=== PATIENT | male | born 1990 ===

== ENCOUNTER 2018-10-15 14:52 | Emergency (ER) | payer BC ==
[~2018-10-15] VITALS: Ht 160 cm; Wt 81.8 kg
[2018-10-15 14:58] VITALS: Ht 160 cm; Wt 81.8 kg
--- NOTE | 2018-10-15 15:52 | ERD ---
ER Documentation Chief Complaint Chief Complaint exposures to saline mix with blood splashed to left eye [facility] student HPI Patient is a 28-year-old male with no past medical history who presents the ER for concerns of body fluid exposure which occurred [employer]. Patient was working in the [employer]. Patient states he was dumping a bowl of saline fluid mixed with blood in it when it splashed into his left eye. Patient was not wearing p rotective eye wear. Patient did rinse his left eye in [employer] department for approximately "5 to 10 seconds". Patient denies any blurry vision. Patient denies any previous exposures. Patient denies previous history of hepatitis B, C or HIV. Patient is up-to-date with all vaccinations. ROS All systems reviewed and are negative except as per history of present illness. Medications Home Meds Active Scripts Raltegravir Potassium* (Isentress*) 400 Mg Tablet, 400 MG PO BID, #60 TAB Prov:JOSEPHINE PAREDES PA-C 10/15/18 Emtricitabine-Tenofovir* (Truvada*) 200-300 Mg Tablet, 1 TAB PO DAILY for 30 Days, TAB Prov:JOSEPHINE PAREDES PA-C 10/15/18 Allergies Allergies: Coded Allergies: No Known Allergy (Unverified , 10/15/18) PMhx/Soc Medical and Surgical Hx: pt denies Medical Hx, pt denies Surgical Hx History of Surgery: No Hx Neurological Disorder: No Hx Respiratory Disorders: No Hx Cardiac Disorders: No Hx Psychiatric Problems: No Hx Miscellaneous Medical Probl: No Hx Alcohol Use: No Hx Substance Use: No Hx Tobacco Use: No Smoking Status: Never smoker FmHx Family History: No diabetes Physical Exam Vitals Vital Signs Date Temp Pulse Resp B/P (MAP) Pulse Ox O2 O2 Flow FiO2 Time Delivery Rate 10/15/18 98.3 94 20 140/78 96 14:58 (98) Physical Exam GENERAL: Well-developed, well-nourished male. Appears in no acute distress. HEAD: Normocephalic, atraumatic. EYES: Pupils are equally reactive bilaterally. EOMs grossly intact. No conjunctival erythema or periorbital swelling. NECK: Supple. No meningismus. Normal range of motion of the neck. LUNG: Clear to auscultation bilaterally. No rhonchi, wheezing, rales or coarse breath sounds. HEART: Regular rate and rhythm. No murmurs, rubs or gallops. EXTREMITIES: Equal pulses bilaterally. No peripheral clubbing, cyanosis or edema. No unilateral leg swelling. NEUROLOGIC: Alert and oriented. Moving all four extremities without any difficulty. Normal speech. Steady gait. SKIN: Normal color. Warm and dry. No rashes or lesions. Result Diagram: 10/15/18 1538 Results 24 hrs Laboratory Tests Test 10/15/18 15:38 White Blood Count 8.3 10^3/ul Red Blood Count 5.74 10^6/ul Hemoglobin 15.3 g/dl Hematocrit 47.1 % Mean Corpuscular Volume 82.1 fl Mean Corpuscular Hemoglobin 26.7 pg Mean Corpuscular Hemoglobin Concent 32.5 g/dl Red Cell Distribution Width 13.7 % Platelet Count 338 10^3/UL Mean Platelet Volume 10.0 fl Immature Granulocytes % 0.400 % Neutrophils % 70.0 % Lymphocytes % 21.3 % Monocytes % 7.2 % Eosinophils % 0.5 % Basophils % 0.6 % Nucleated Red Blood Cells % 0.0 /100WBC Immature Granulocytes # 0.030 10^3/ul Neutrophils # 5.8 10^3/ul Lymphocytes # 1.8 10^3/ul Monocytes # 0.6 10^3/ul Eosinophils # 0.0 10^3/ul Basophils # 0.1 10^3/ul Nucleated Red Blood Cells # 0.0 10^3/ul Total Bilirubin 0.6 mg/dl Direct Bilirubin 0.00 mg/dl Indirect Bilirubin 0.6 mg/dl Aspartate Amino Transf (AST/SGOT) 37 IU/L Alanine Aminotransferase (ALT/SGPT) 59 IU/L Alkaline Phosphatase 59 IU/L Total Protein 8.3 g/dl Albumin 4.9 g/dl Hepatitis B Surface Antigen NEGATIVE Hepatitis B Surface Antibody POSITIVE Hepatitis C Antibody NEGATIVE HIV (1&2) Antibody NEGATIVE Current Medications Medications Dose Sig/Garry Start Time Status Last (Trade) Ordered Route PRN Stop Time Admin Dose Reason Admin 400 mg ONCE ONCE 10/15/18 DC 10/15/18 Miscellaneous PO 17:00 10/15/18 16:29 Medication 17:00 (Isentress) 1 tab ONCE ONCE 10/15/18 DC Emtricitabine PO 17:00 10/15/18 / Tenofovir 17:00 (Truvada) Procedures/MDM MEDICAL DECISION MAKING: Patient is a 28-year-old male who presents the ER for concerns of body fluid exposure to his left eye prior to arrival. Vital signs were reviewed. Patient is afebrile. Patient was not hypoxic. Patient was hemodynamically stable. Patient stated that he did rinse his eye in the [employer] for approximately 5 to 10 seconds. Patient underwent additional eye rinse time here in the ER. Patient rinse his eye for approximately 10 minutes. Given that fluid exposure occurred in the [employer], we did determine who the source patient was. Source patient's physician Dr. Stewart. I spoke with [employer] nurses and requested that the source patient be tested for HIV antibody, hepatitis B surface antigen and hepatitis C antibody. Blood work was obtained on the patient. CBC showed no evidence of systemic infection or anemia. Liver panel was within normal limits. Hep B surface antigen was negative. Hep B hepatitis B surface antigen was negative. Hepatitis B surface antibody was positive. Patient noted to have immunity to hep B virus. Hepatitis C antibody was negative. HIV 1 and 2 antibody negative. I discussed HIV post exposure prophylaxis with the patient. I discussed the risks versus benefits of taking Isentress and Truvada in the setting of post exposure prophylaxis and the associated side effects of these medications. Patient stated that he did wish to start this medication. Patient was given first dose of medication here in the ER. Patient will be discharged home with a prescription for Isentress and Truvada. Patient was advised to follow-up with his primary care physician and monitor his blood work closely while taking these medications. DISCHARGE: At this time, patient is stable for discharge and outpatient management. I have instructed the patient to follow-up with his/her primary care physician in 1-2 days. I have discussed with the patient the possibility of needing to see a specialist for further workup and imaging studies if symptoms persist. I have instructed the patient to promptly return to the ER for any new or worsening symptoms including increased pain, fever, nausea, vomiting, weakness or LOC. The patient and/or family expressed understanding of and agreement with this plan. All questions were answered. Home care instructions were provided. Disclaimer: Inadvertent spelling and grammatical errors are likely due to EHR/dictation software use and do not reflect on the overall quality of patient care. Also, please note that the electronic time recorded on this note does not necessarily reflect the actual time of the patient encounter. Departure Diagnosis: Primary Impression: Employee exposure to body fluids Condition: Fair Patient Instructions: Body Fluid Exposure, Health Care Worker Referrals: [facility] YOU HAVE RECEIVED A MEDICAL SCREENING EXAM AND THE RESULTS INDICATE THAT YOU DO NOT HAVE A CONDITION THAT REQUIRES URGENT TREATMENT IN THE EMERGENCY DEPARTMENT. FURTHER EVALUATION AND TREATMENT OF YOUR CONDITION CAN WAIT UNTIL YOU ARE SEEN IN YOUR DOCTORS OFFICE WITHIN THE NEXT 1-2 DAYS. IT IS YOUR RESPONSIBILITY TO MAKE AN APPOINTMENT FOR FOLOW-UP CARE. IF YOU HAVE A PRIMARY DOCTOR --you should call your primary doctor and schedule an appointment IF YOU DO NOT HAVE A PRIMARY DOCTOR YOU CAN CALL OUR PHYSICIAN REFERRAL HOTLINE AT IF YOU CAN NOT AFFORD TO SEE A PHYSICIAN YOU CAN CHOSE FROM THE FOLLOW[facility] [address] [facility] [address] [facility] [facility] [address] [facility] [address] [facility] [address] [facility] [facility] [address] [facility] [facility] YOU HAVE RECEIVED A MEDICAL SCREENING EXAM AND THE RESULTS INDICATE THAT YOU DO NOT HAVE A CONDITION THAT REQUIRES URGENT TREATMENT IN THE EMERGENCY DEPARTMENT. FURTHER EVALUATION AND TREATMENT OF YOUR CONDITION CAN WAIT UNTIL YOU ARE SEEN IN YOUR DOCTORS OFFICE WITHIN THE NEXT 1-2 DAYS. IT IS YOUR RESPONSIBILITY TO MAKE AN APPOINTMENT FOR FOLOW-UP CARE. IF YOU HAVE A PRIMARY DOCTOR --you should call your primary doctor and schedule and appointment IF YOU DO NOT HAVE A PRIMARY DOCTOR YOU CAN CALL OUR PHYSICIAN REFERRAL HOTLINE AT . IF YOU CAN NOT AFFORD TO SEE A PHYSICIAN YOU CAN CHOSE FROM THE FOLLOWING [facility] INSTITUTIONS: [facility] [address] [place] [address] [facility] [address] [place] [address] [facility] [address] [place] [address] Additional Instructions: Follow-up with your assigned online services manager to determine the patient's immune status. Follow-up with your primary care physician for recheck of blood work in 2 weeks. Repeat testing at 4 weeks and 12 weeks advised. Call your primary care doctor TOMORROW for an appointment during the next 1-2 days.See the doctor sooner or return here if your condition worsens before your appointment time. JOSEPHINE PAREDES PA-C Oct 15, 2018 15:52
[2018-10-15] MEDS ORDERED: ISEN400 PO (16:00)
[2018-10-15] MEDS ORDERED: EMTR1TAB11 PO (16:00)
[2018-10-15] MEDS ORDERED: RALTEGRAVIR 400 MG TAB PO ONE (17:00)
[2018-10-15] MEDS ORDERED: EMTRICITABINE/TENOFOVIR TAB PO ONE (17:00)
== END 2018-10-15 16:33 | disposition home or self-care (01) ==
LOC: E/R 14:52 → FTE 16:33
DX: Z77.21 Contact with and (suspected) exposure to potentially hazardous body fluids (principal)
CPT/HCPCS: 80076; 85025; 86703; 86706; 86803; 87340